=== PATIENT | female | born 1970 | race Caucasian/White ===

== ENCOUNTER → 2016-09-15 | Outpatient (CLI) | payer BC | END | disposition home or self-care (01) | LOC: C.RDSM 14:28 | PROVIDERS: ATTEND Family Medicine Sports Medicine | DX: M25.572 Pain in left ankle and joints of left foot (principal) ==

== ENCOUNTER → 2016-10-25 | Outpatient (CLI) | payer BC ==
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
== END | disposition home or self-care (01) ==
LOC: C.MRI 12:19
PROVIDERS: ATTEND Family Medicine Sports Medicine
DX: S93.492A Sprain of other ligament of left ankle, initial encounter (principal); X58.XXXA Exposure to other specified factors, initial encounter; R93.7 Abnormal findings on diagnostic imaging of other parts of musculoskeletal system

== ENCOUNTER 2017-08-12 17:22 | Emergency (ER) | payer BC, OTHER ==
[~2017-08-12] VITALS: Ht 157.5 cm; Wt 74.6 kg
[2017-08-12 17:42] VITALS: TEMP 36.9; Ht 157.5 cm; Wt 74.6 kg
[2017-08-12] MEDS ORDERED: SUPPLEMENTS PO (18:17)
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
[2017-08-12] MEDS ORDERED: ONDANSETRON 4MG OD TAB PO STA (18:57)
[2017-08-12] MEDS ORDERED: NORCO 5/325MG HOME PACK PO ONE (19:00)
[2017-08-12 19:12] VITALS: BP 118/86; PULSE 58; O2SAT 99
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
== END 2017-08-12 19:16 | disposition home or self-care (01) ==
LOC: C.EDB 17:23 → C.EDD 19:16
DX: S00.12XA Contusion of left eyelid and periocular area, initial encounter (principal); R51 Headache; V43.52XA Car driver injured in collision with other type car in traffic accident, initial encounter; Y92.410 Unspecified street and highway as the place of occurrence of the external cause